=== PATIENT | female | born 1975 | race Caucasian/White ===

== ENCOUNTER 2024-11-22 11:04 | Emergency (ER) | payer OTHER, SELFPAY ==
--- NOTE | ~2024-11-22 | XR_ITS ---
EXAMINATION: XR chest 2V DATE: 11/22/2024 13:22 INDICATION: Cough. TECHNIQUE: Frontal and lateral views of the chest were obtained. COMPARISON: None. FINDINGS: There are airspace opacities in right middle lobe. No pleural effusion or pneumothorax. The heart size is normal. There are prominent pericardial fat pads. IMPRESSION: 1. Airspace opacities in right middle lobe, consistent with atelectasis versus pneumonia. Reviewed, dictated and finalized at location A. CONSERVATION SPECIALIST
--- OUTSIDE RECORDS SUMMARY | 2024-11-22 11:18 | XMS_ITS | Encounter Summary ---
Author Name [facility] Organization [facility] Address [address] [place] [id number] Selected Encounter This section includes the information on record at NH for the Encounter. Date/Time Encounter Type Encounter Description Reason Provider Source Aug 27, 2024 02:00 PM [facility] ASSMT/REASSESSME NT CAREGIVER SUPPORT PROGRAM ICD-10-CM Z63.6 Dependent relative needing care at home CHINA CASTRO [place] Encounter Template Text not used by [place] Assessments - Encounter Diagnoses This section includes the primary and secondary diagnoses documented for the Encounter. Date/Time Primary/Secondary Diagnosis Diagnosis Name Provider Source Aug 27, 2024 03:15 PM PRIMARY Dependent relative needing care at home CHINA CASTRO [facility] Encounter Notes: All associated encounter notes This section contains the clinical notes associated to the Encounter. Date/Time Encounter Note(s) Provider Source Aug 27, 2024 01:51 PM CAREGIVER CERTIFIC ATE: LOCAL TITLE: [facility] WELLNESS CONTACT CAREGIVER STANDARD TITLE: CAREGIVER CERTIFICATE DATE OF NOTE: AUG 27, 2024@13:51 ENTRY DATE: AUG 27, 2024@13:51:43 AUTHOR: CHINA CASTRO EXP COSIGNER: URGENCY: STATUS: COMPLETED This Family Caregiver is enrolled in the [facility] Program of Comprehensive Assistance for Family Caregivers (PCAFC). While enrolled in the PCAFC, wellness contacts are required and must review the Veterans well- being, adequacy of personal care services being provided by the Family Caregiver(s), and the well-being of the Family Caregiver(s). This wellness contact will occur at a minimum of once every 120 days, and at least one visit must occur in the eligible Veterans home on an annual basis. Date of Visit: AUG 27, 2024 Length of Visit: 20 minutes Full Name (last, first): TENA TAVAREZ ADDISON Age: 48 Full SSN: [id number] Date of : Sep Diagnosis: Z63.6- Dependent Relative Needing Care at Home Method of contact: __ Telehealth / [facility] Video Connect Caregiver contact details: Best contact number for backup/emergency communication with caregiver (required): Phone number: Caregiver location during visit: __ Home address: [address], [place] [address] Caregiver confirms location is private and safe for visit. Yes Visit conducted by clinical video telehealth: Yes Caregiver verbal consent obtained. Yes Location/emergency number confirmed. Yes Virtual Conference Room is locked. Yes Individuals providing input include: (include all that apply) __Primary Family Caregiver CAREGIVER INFORMATION The caregiver is a: Primary Family Caregiver Caregiver is providing care to: Name: Addison Castellanos Does the caregiver live with the ? Yes Have there been any changes to the caregivers address: no [address], [place] [address] telephone number: e-mail address: Is caregivers contact information in electronic health record and the Caregiver Support Program IT system current? Yes CAREGIVER ASSESSMENT How has your physical/mental/emotional health been lately? Good, the program is very supportive, outreach from [facility] on consistent basis, when I requested Respite it was addressed quickly. 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 It provides me some socialization and have met friends in the area (moved to [facility] from [place] to provide care to ). Caregiver shares she sleeps good and is able to attend her medical appointments. Have there been any changes (falls, ER visits, hospitalizations)? CG denies any falls, visits to E.D. or admissions to the hospital. What current challenges or stressors do you have, if any? Trying to determine what is his personality vs dementia... cognitive impairments vs personality. Caregiver further explained that has been more of an introvert and laidback all of his life so he she is not sure if his withdrawal and inactivity is related to his dementia or just his normal personality. How are you coping with these issues? (discuss coping skills and support systems as appropriate, consider referral to mental health) Caregiver shares she has locally and friends in [place] that are supportive. Additionally her daughter is local as she is attending college at [employer]. Do you feel comfortable and safe in your home environment? Yes What additional supports do you need to care for the , if any? (discuss respite services as appropriate) I don't believe so and I know who to reach out to if I need something. How can the Caregiver Support Program support you? What goals/needs can we assist you with? I'm good, you guys have made it easy peasy. SUMMARY OF VISIT/ACTION TAKEN Caregiver actively participated in the Wellness Contact conducted via telehealth. She was friendly, A&Ox4, able to stay on topic and used appropriate language skills during the conversation. Caregiver denies any additional needs at this time and reports feeling safe in her home. Confirmed with Caregiver that Respite (10hrs/week) was ongoing and not just for her recent trip to [place]. She reports moving from [place], still having her home in [place], to help her father/[place] with his care. A friend is renting her home for the next couple years. Caregiver has developed friends locally and is still on contact with her friends in [place]. She reports enjoying her part-time work as it has allowed her develop friends and engage in some social activity. Caregiver denies any additional needs at this time. /joao/ LEAH Downey, SENIOR SYSTEM OPERATOR Technical Support Technician, Caregiver Support Program Signed: 08/27/2024 15:15 [facility] CASTRO [facility]
--- OUTSIDE RECORDS SUMMARY | 2024-11-22 11:18 | XMS_ITS | Referral Summary ---
Author Organization [address] lt Address [address] [place] [address] Care Team Providers Care Senior Warehouse Clerk Name Role Phone Farida Min NP Primary Care Provider [phone] Allergies Active Allergy Reactions Criticality Noted Date Comments Propofol Flushing (skin),Hives,Itching,Palpitations,Rash ,Shortness of breath,Wheezing High 10/15/1991 Medications loratadine (Claritin) 10 mg tablet Active montelukast (SINGULAIR) 10 mg tabletIndicatio ns:Maintenance Therapy for Asthma Take 1 tablet (10 mg total) by mouth nightly 90 tablet 3 4 05/31/20 25 Active albuterol HFA (PROVENTIL HFA,VENTOLIN HFA,PROAIR HFA) 90 mcg/actuation inhalerIndicati ons:Acute Asthma Attack Inhale 2 puffs every 4 (four) hours as needed for wheezing 1 each 3 4 Active spironolactone (ALDACTONE) 25 mg tabletIndicatio ns:Hypertension , essential TAKE 2 TABLETS BY MOUTH JACK WINDER BEFORE BREAKFAST AND 1 TABLET WITH EVENING MEAL. 270 tablet 1 5 Active Active Problems Problem Noted Date Diagnosed Date Seasonal allergies 06/08/2024 Assessment & Plan (06/08/2024 3:28 PM CDT): - chronic, recently worsening since moving to the area - currently on loratadine - add Singulair 10 mg nightly - may use OTC Flonase &/or azelastine p.r.n. Hypertension, essential 06/08/2024 Assessment & Plan (06/08/2024 3:28 PM CDT): - chronic, stable at goal of < 140/90 - continue spironolactone 25 mg daily in the a.m. Class 2 obesity without seri ous comorbidity with body mass index (BMI) of 37.0 to 37.9 in adult 06/08/2024 Assessment & Plan (06/08/2024 3:29 PM CDT): - avoid/limit processed, fried/fast foods and simple/refined carbohydrates. Aim to eat plenty of vegetables, whole grains, legumes, lean protein, low-fat dairy, fruit, and include some healthy fats such as olive oil, nuts, avocados, and baked fatty fish such as salmon. - consider reducing carbohydrates to less than 150 g daily - aim for at least 30 minutes of moderate to intense aerobic activity most days of the week, strength training at least 2-3 times weekly Immunizations Name Administration Dates Next Due Influenza, Quadrivalent, [place]serr[place] l Culture-based MDCK, Preservative Free, Antibiotic Free, Intramuscular 08/21/2023 Influenza, Unspecified 08/21/2023 PPD TEST 08/27/2023 Social History Tobacco Use Types Packs/Day Years Used Date Smoking Tobacco: Every Day Vaping Smokeless Tobacco: Never Tobacco Cessation:Ready to Q uit: No; Counseling Given: Not Answered AUDIT-C Answer Date Recorded Q1: How often do you have a drink containing alc ohol? Monthly or less 06/05/2024 Q2: How many drinks containi ng alcohol do you have on a typical day when you are drinking? 3 or 4 06/05/2024 Q3: How often do you have si x or more drinks on one occasion? Less than monthly 06/05/2024 PHQ-2 Answer Date Recorded PHQ-2 Total Score (If total score is 3 or more points, staff should administer the PHQ-9) 0 06/05/2024 Exercise Vital Sign Answer Date Recorde d On average, how many days pe r week do you engage in moderate to strenuous exercise (like a brisk walk)? 7 days 06/05/2024 On average, how many minutes do you engage in exercise at this level? 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 MACHINE OPERATOR Gender Identity Female 08/26/2023 10:02 AM BEATING MACHINE OPERATOR Sexual Orientation Straight 08/26/2023 10 :02 AM BEATING MACHINE OPERATOR Last Filed Vital Signs Vital Sign Reading Time Taken Comments Blood Pressure 126/68 06/05/2024 1:20 PM CDT Pulse 80 06/05/2024 1:20 PM CDT Temperature 36.6 C (97.8 F) 06/05/2024 1:20 PM CDT Respiratory Rate - - Oxygen Saturation 99% 06/05/2024 1:20 PM CDT Inhaled Oxygen Concentration - - Weight 103 kg (227 lb 1.6 oz) 06/05/2024 1:20 PM CDT Height 162.6 cm (5' 4 ) 07/14/2024 1:33 PM CDT Body Mass Index 37.79 06/05/2024 1:20 PM CDT Plan of Treatment Not on file Procedures Procedure Name Priority Date/Time Associated Diagnosis Comments SCREENING MAMMOGRAM BILATERAL W JOSE Schedule Routine, Read Routine (OP Routine) 07/14/2024 1:40 PM CDT Breast cancer screening by mammogram HEPATITIS C ANTIBODY Routine 07/12/2024 9:14 AM CDT Encounter for hepatitis C screening test for low risk patient from Last 3 Months or Most Recently Relevant to Health Maintenance Results * Screening Mammogram Bilateral W Jose (07/14/2024 1:40 PM CDT) Anatomical Region Laterality Modality Breast Bilateral Mammography 07/17/2024 4:09 PM CDT Impressions 07/17/2024 4:09 PM CDT No evidence of malignancy in either breast. FINAL ASSESSMENT: BI-RADS Category 1: Negative. RECOMMENDATION: Recommend return for annual screening mammogram in 12 months. Electronically signed by: Deidra Tilley M.D. Narrative 07/17/2024 4:09 PM CDT EXAMINATION: BILATERAL SCREENING MAMMOGRAM COMPARISON: None TECHNIQUE: Full-field 2D and digital breast tomosynthesis (DBT) images were obtained. CAD was utilized. BREAST PARENCHYMAL COMPOSITION: The breasts are heterogenously dense, which may obscure small masses. FINDINGS: There is no suspicious mass, calcification, or distortion in either breast. Farida Min NP IMG MAMMO PROCEDURES Final R esult * Hepatitis C antibody Blood (07/12/2024 9:14 AM CDT) Hep C Ab Nonreactive Nonreactive Comment: Interpretive Data Nonreactive: Antibodies to HCV not detected. Does NOT exclude the possibility of recent exposure to HCV. Equivocal: Equivocal for HCV antibodies. Supplemental molecular testing will be automatically performed to determine infection status in accordance with current CDC screening recommendations. Reactive: Positive for HCV antibodies. This may represent current or past HCV infection. Supplemental molecular testing will be automatically performed to determine current infection status in accordance with current CDC screening recommendations. Interpretive data was last revised on 2019. Testing performed by: [facility], [address] [place] [address], [facility] Blood 07/12/2024 9:14 AM CDT 07/12/2024 4:07 PM CDT Farida Min NP LAB MICROBIOLOGY - GENERAL O RDERABLES Final Result Performing Organization Address City/State/[facility] Co de Phone Number [facility] [place] [facility] Department [place] [address] from Last 3 Months or Most Recently Relevant to Health Maintenance Insurance [employer] [facility] HMO Care Teams Senior Warehouse Clerk Relationship Specialty Start Date End Date Farida Min NP [address] [phone] PCP - General Infectious Diseases 06/04/24
--- OUTSIDE RECORDS SUMMARY | 2024-11-22 11:18 | XMS_ITS | Clinical Summary ---
Author Organization [address] Address [address] [place] [address] Care Team Providers Care Dean Of Student Services Name Role Phone Farida Min NP Primary Care Provider [phone] Allergies Active Allergy Reactions Criticality Noted Date [...] , essential TAKE 2 TABLETS BY MOUTH DEPUTY MANAGER BEFORE BREAKFAST AND 1 TABLET WITH EVENING [...] 08/21/2023 Influenza, Unspecified 08/21/2023 PPD TEST 08/27/2023 Surgical History Surgery Date Site/Laterality Comments SECTION 10/14/2004 OVARIAN CYST REMOVAL 1991 Medical History Medical History Date Comments Asthma Cancer (CMS/HCC) (HCC) BCC skin cancer on nose Hypertension eclampsia when giving Menstrual problem Smoking Family History Medical History Relation Name Comments Vision loss Daughter Kim Carmichael Alzheimer's disease Father Addison Castellanos Cancer Father Addison Castellanos Hyperlipidemia Father Addison Castellanos Cancer Mother Jes Castellanos Diabetes Mother Jes Castellanos Hyperlipidemia Mother Jes Castellanos Hypertension Mother Jes Castellanos Kidney disease Mother Jes Castellanos Miscarriages / Stillbirths Mother Jes Castellanos Obesity Mother Jes Castellanos Breast cancer Mother's Sister great aunt Ovarian cancer Neg Hx Thyroid cancer Neg Hx Relation Name Status Comments Daughter Kim Carmichael Father Addison Castellanos Mother Jes Castellanos Mother's Sister great aunt Social History Tobacco Use Types Packs/Day Years [...] on file 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 Gender Identity Female 08/26/2023 10:02 AM YARD CLERK Sexual Orientation Straight 08/26/2023 10 :02 AM YARD CLERK Obstetrics History Para Term AB IAB SAB Ectopic Multiple Livin g Live Births 4 1 1 Date Outcome GA Total Labor Labor/2nd/3rd Weight Sex Type Anes PTL Karla A1 A5 Name Clin Term Last Filed Vital Signs Vital Sign Reading [...] 06/05/2024 1:20 PM CDT Plan of Treatment Health Maintenance Due Date Last Done Comments Cervical Cancer Screening 1976 Colon Cancer Screening-Colonoscopy 1976 Pneumococcal vaccine <65 (1 of 2 - PCV) 1982 Covid-19 Vaccine (4 - 2023-2 5 season) 2024 10/21/2021, 11/17/2020, 10/22/2020 Influenza Vaccine (#1) 2024 3, 08/21/2023, 08/14/2022, Additional history exists Depression Screening 06/05/2025 06/05/2024 Regular Well Visit/Exam 18-64 06/05/2025 06/05/2024 Breast Cancer Screening-Mammogram 07/14/2025 024 DTaP/Tdap/Td Vaccine (2 - Td or Tdap) 02/22/2031 02/22/2021 Hepatitis B Screening Completed 07/12/2024, 001 Hepatitis C Screening Completed 07/12/2024 Procedures Procedure Name Priority Date/Time Associated Diagnosis [...] mass, calcification, or distortion in either breast. us Farida Min NP IMG MAMMO PROCEDURES Final [...] last revised on 2019. Testing performed by: [facility], [address] [place] [address]., [id number] Blood 07/12/2024 9:14 AM CDT 07/12/2024 4:07 PM CDT us Farida Min NP LAB MICROBIOLOGY - GENERAL O RDERABLES Final Result CHARLY CHAUDHARI ALLENDALE) [address] [facility] Department [place] [address] from Last 3 Months or Most Recently Relevant to Health Maintenance Insurance [employer] [facility] HMO Care Teams Dean Of Student Services Relationship Specialty Start Date End Date Farida Min NP [address] [address] PCP - General Infectious Diseases 06/04/24
--- OUTSIDE RECORDS SUMMARY | 2024-11-22 11:18 | XMS_ITS | Continuity of Care Document ---
Author Name [facility] Organization [facility] Care Team Providers Care Disk Recordist Name Role Phone [facility] Unavailable Unavailable Problems Combined list of problems from Department of [facility] and [facility] facilities. It does not include entries that were removed or entered in error. Problem Status Onset Date Problem Type Date of Resolution Comments Source Diagnosis: ICD-10-CM Z63.6 Dependent relative needing care at home Active Diagnosis [facility] Diagnosis: ICD-10-CM Z65.9 Problem related to unspecified psychosocial circumstances Active Diagnosis [facility] Encounters Combined list of: 1) Encounters from Department of [facility] Affairs facilities going backup to the last 18 months, not all [place] inpatient encounters are included; 2) Encounters from the Department [facility] facilities going backup to 280 months. Location Location Details Encounter Type Encounter Number Reason For Visit Attending Provider ADM Date DC Date Status Disposition Source [facility] PT EDUCATION NOC INDIVID [id number] Diagnos is: ICD-10- CM Z65.9 Problem related to unspeci fied psychos ocial circums tances MARIE DC L 03/31 [facility] PROGRAM INTAKE ASSESSMENT [id number] Diagnos is: ICD-10- CM Z63.6 Depende nt relativ e needing care at home Will YATES 05/08 [facility] Outpatient Encounter [id number] MARIE DC L 05/16 [facility] Outpatient Encounter [id number] 08/04 [facility] SESS[facility] [id number] Diagnos is: ICD-10- CM Z63.6 Depende nt relativ e needing care at home SUDHEER CASTRO 08/27 [facility] TEVIN Antonio
--- OUTSIDE RECORDS SUMMARY | 2024-11-22 11:20 | XMS_ITS | Continuity of Care Document ---
Author Name [facility] Organization [facility] Care Team Providers Care Plant Health Manager Name Role Phone [facility] Unavailable Unavailable Problems Combined list of problems from Department of [facility] and [facility] facilities. It does not include entries that were removed or entered in error. Problem Status Onset Date Problem Type Date of Resolution Comments Source Diagnosis: ICD-10-CM Z63.6 Dependent relative needing care at home Active Diagnosis [facility] Diagnosis: ICD-10-CM Z65.9 Problem related to unspecified psychosocial circumstances Active Diagnosis [facility] Encounters Combined list of: 1) Encounters from Department of [facility] Affairs facilities going backup to the last 18 months, not all [place] inpatient encounters are included; 2) Encounters from the Department [facility] facilities going backup to 280 months. Location Location Details Encounter Type Encounter Number Reason For Visit Attending Provider ADM Date DC Date Status Disposition Source [facility] PT EDUCATION NOC INDIVID [id number] Diagnos is: ICD-10- CM Z65.9 Problem related to unspeci fied psychos ocial circums tances MARIE DC L 03/31 [facility] PROGRAM INTAKE ASSESSMENT [id number] Diagnos is: ICD-10- CM Z63.6 Depende nt relativ e needing care at home Will YATES 05/08 [facility] Outpatient Encounter [id number] MARIE DC L 05/16 [facility] Outpatient Encounter [id number] 08/04 [facility]AS SESS[facility] [id number] Diagnos is: ICD-10- CM Z63.6 Depende nt relativ e needing care at home SUDHEER CASTRO 08/27 [facility] TEVIN Antonio
[2024-11-22 11:27] VITALS: BP 138/51; PULSE 85; RESP 20; TEMP 37.6; O2SAT 99
--- NOTE | 2024-11-22 13:01 | ED.GENADULT ---
HPI - General Adult General Chief complaint: Upper Respiratory Infection Stated complaint: cough,sinus nando, headache, irritated throat Source: patient Mode of arrival: ambulatory Limitations: no limitations History of Present Illness HPI narrative: Patient presents for evaluation of sick symptoms. She indicates she had symptoms consistent with a common cold or flu started 8 days ago. Her symptoms improved and then she had recurrence of her symptoms approximately 5 days ago. Symptoms include sinus congestion, productive cough of yellow sputum, wheezing, and chest tightness. She has an underlying history of asthma. She has been taking ogqi-uev-hdifuhj allergy medicine, cough cold medication, Sudafed, and used her albuterol inhaler. 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 She has a history of pneumonia and this feels similar to the start of when she had it before. She does vape. Related Data Home Medications ?Medication ?Instructions ?Recorded ?Confirmed ?Last Taken ?Type albuterol sulfate 90 mcg/actuation inhalation 11/22/24 Unknown History aerosol inhaler loratadine .ROUTE 11/22/24 Unknown History montelukast 10 mg tablet mg 11/22/24 Unknown History spironolactone 25 mg tablet mg 11/22/24 Unknown History Allergies Allergy/AdvReac Type Severity Reaction Status Date / Time propofol (From Diprivan) Allergy Unknown Unknown Verified 11/22/24 11:34 Review of Systems Review of Systems: CONSTITUTIONAL: Denies fever, chills, or sweats. EYES: Denies visual changes, redness, or discharge. ENT: Reports sinus congestion postnasal drainage. CARDIOVASCULAR: Denies chest pain, palpitations, or edema. RESPIRATORY: Reports cough, chest tightness and wheezing GASTROINTESTINAL: Denies abdominal pain, nausea, vomiting, or diarrhea. GENITOURINARY: Denies dysuria or hematuria. SKIN: Denies rash or itching. MUSCULOSKELETAL: Denies back pain, joint pain, or myalgia. NEUROLOGIC: Denies headache, numbness, dizziness, or weakness. PSYCHIATRIC: Denies anxiety or depression. [facility] Past Medical History Medical History Asthma Surgical History Surgical History No pertinent past surgical history Family History Family History Mother Family history non-contributory Social History Social History Smoking status: Current every day smoker Tobacco type: e-cigarettes/vaping Substance use: never Additional occupation/education comments: Works at a daycare Gender identity (if verbalized by the patient): Female Exam Narrative: GENERAL: Well-appearing, well-nourished, and in no acute distress. HEAD: Normocephalic, atraumatic. EYES: PERRLA and EOMI. ENT: Nares clear, no rhinorrhea or epistaxis. Mucous membranes moist. Oropharynx without tonsillar hypertrophy exudate or other lesions. Bilateral TMs pearly cortez nonbulging NECK: Supple. No adenopathy or masses. No carotid bruits or JVD CHEST: Poor inspiratory effort. Lungs bilaterally diminished. Wheezing present bilaterally. HEART: Regular rate and rhythm. No murmur heard. Normal peripheral pulses. ABDOMEN: Soft, nontender, nondistended, normal active bowel sounds. EXTREMITIES: Normal range of motion. No edema. SKIN: Warm, dry, no rash. NEURO: No focal deficits. Alert and oriented x3. PSYCH: Normal mood and affect. Course Course Emergency Course: This is a 49-year-old female who presented for evaluation of respiratory symptoms. Chest x-ray consistent pneumonia. Will discharge with azithromycin, Augmentin, prednisone. Increase hydration. Whpo-olu-dgsadgb agents for symptom management. Follow up with primary provider go to the ER for worsening symptoms. Patient in agreement with plan care. Level of Care: Express Care Visit Vital Signs Vital signs: Vital Signs Temperature 37.6 C H 11/22/24 11:27 Pulse Rate 85 11/22/24 11:27 Respiratory Rate 20 11/22/24 11:27 Blood Pressure 138/51 L 11/22/24 11:27 Pulse Oximetry 99 11/22/24 11:27 Oxygen Delivery Room Air 11/22/24 11:27 Temperature 37.6 C H 11/22/24 11:27 Pulse Rate 85 11/22/24 11:27 Respiratory Rate 20 11/22/24 11:27 Blood Pressure 138/51 L 11/22/24 11:27 Pulse Oximetry 99 11/22/24 11:27 Oxygen Delivery Room Air 11/22/24 11:27 Medical Decision Making Vital Signs Vital Signs: Vital Signs Temperature 37.6 C H 11/22/24 11:27 Pulse Rate 85 11/22/24 11:27 Respiratory Rate 20 11/22/24 11:27 Blood Pressure 138/51 L 11/22/24 11:27 Pulse Oximetry 99 11/22/24 11:27 Oxygen Delivery Room Air 11/22/24 11:27 Temperature 37.6 C H 11/22/24 11:27 Pulse Rate 85 11/22/24 11:27 Respiratory Rate 20 11/22/24 11:27 Blood Pressure 138/51 L 11/22/24 11:27 Pulse Oximetry 99 11/22/24 11:27 Oxygen Delivery Room Air 11/22/24 11:27 Imaging Data Radiologist's impression: EXAMINATION: XR chest 2V DATE: 11/22/2024 13:22 INDICATION: Cough. TECHNIQUE: Frontal and lateral views of the chest were obtained. COMPARISON: None. FINDINGS: There are airspace opacities in right middle lobe. No pleural effusion or pneumothorax. The heart size is normal. There are prominent pericardial fat pads. IMPRESSION: 1. Airspace opacities in right middle lobe, consistent with atelectasis versus pneumonia. Discharge Plan Discharge Clinical Impression: Community acquired pneumonia Patient Disposition: Home, Self-Care Condition: Stable Instructions: Antibiotic Form, Pneumonia (ED) Patient Language: Jordanian Prescriptions: New amoxicillin-pot clavulanate 875-125 mg tablet 1 tablet PO Q12H Qty: 20 0RF azithromycin [Zithromax Z-Harpreet] 250 mg tablet See Rx Instructions .ROUTE .COMPLEX Qty: 6 0RF Rx Instructions: For 250 mg dose pack: take 500 mg today (day 1), then 250 mg for 4 days (days 2-5) prednisone 50 mg tablet 50 mg PO DAILY Qty: 5 0RF No Action spironolactone 25 mg tablet montelukast 10 mg tablet albuterol sulfate 90 mcg/actuation HFA aerosol inhaler INHALATION loratadine .ROUTE Follow-up/Referrals: Jade Marquis DO [Physician] - Time of Disposition: 13:37
== END 2024-11-22 13:43 | disposition home or self-care (01) ==
PROVIDERS: Emergency Provider Nurse Practitioner
DX: J18.9 Pneumonia, unspecified organism (principal); F17.290 Nicotine dependence, other tobacco product, uncomplicated; J45.909 Unspecified asthma, uncomplicated
CPT/HCPCS: 71046; 99213; G0463

== ENCOUNTER 2024-12-01 14:08 | Emergency (ER) | payer OTHER, SELFPAY ==
--- NOTE | ~2024-12-01 | XR_ITS ---
EXAMINATION: XR chest 2V DATE: 12/01/2024 14:53 INDICATION: Pneumonia. TECHNIQUE: Frontal and lateral views of the chest were obtained. COMPARISON: Chest 2 views 11/22/2024 FINDINGS: There is no pneumonia, pleural effusion, or pneumothorax. The heart size is normal. There a re prominent pericardial fat pads. IMPRESSION: 1. No acute cardiopulmonary disease. Reviewed, dictated and finalized at location A. Y MEDIA OPERATOR
[2024-12-01 14:16] VITALS: BP 132/74; PULSE 86; RESP 20; TEMP 36.9; O2SAT 100
--- NOTE | 2024-12-01 15:12 | ED_ITS ---
HPI - URI/Sore Throat General Chief Complaint: Upper Respiratory Infection Stated Complaint: Shortness of Breath/Nausea Time Seen by Provider: 12/01/24 14:30 Source: patient, RN notes reviewed and old records reviewed Mode of arrival: ambulatory Limitations: no limitations History of Present Illness HPI Narrative: 49 year old female presents to [facility] care with complaints of still having some cough and some occasional nausea after being treated for pneumonia in the right middle lobe on the 22 of November. Patient reports no recent fevers, chills,or any body aches. Patient states that she is on the last day of antibiotics and states some feelings of lung heaviness, does have underlying history of asthma. Patient reports that she has also completed her steroids has had no acute shortness of breath with respirations even and nonlabored.,SAO2 100% on room air. Patient reports that she need repeat chest xray to make sure pneumonia has cleared. MD elicited complaint: cough and other (some nsusea) Pertinent past history: asthma Onset (ago): day(s) (initial symptoms on November 22) Severity: mild Able to tolerate fluids by mouth: Yes Treatments prior to arrival: antibiotics and other (Mucinex) Related Data Home Medications ?Medication ?Instructions ?Recorded ?Confirmed ?Last Taken ?Type albuterol sulfate 90 mcg/actuation inhalation 11/22/24 Unknown History aerosol inhaler loratadine .ROUTE 11/22/24 Unknown History montelukast 10 mg tablet mg 11/22/24 Unknown History spironolactone 25 mg tablet mg 11/22/24 Unknown History Allergies Allergy/AdvReac Type Severity Reaction Status Date / Time propofol (From Diprivan) Allergy Unknown Unknown Verified 11/22/24 11:34 Review of Systems Review of Systems: CONSTITUTIONAL: Denies malaise, chills, sweats, or fever. EYES: Denies visual changes, redness, or discharge. ENT: Reports rhinorrhea, congestion, no sinus pain,no otalgia and no sore throat. CARDIOVASCULAR: Denies chest pain, palpitations, or edema. RESPIRATORY: Reports cough.? Denies any acute dyspnea. GASTROINTESTINAL: Denies abdominal pain, reports some nausea, no vomiting, no diarrhea SKIN: Denies rash or itching. MUSCULOSKELETAL: Denies myalgia. NEUROLOGIC: Denies headache. 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 There is no relevant family history pertinent to the presenting complaint Exam Narrative: GENERAL: Well-appearing, well-nourished, and in no acute distress. HEAD: Normocephalic EYES: PERRLA, conjunctivae clear ENT: Nares clear, turbinates edematous and erythematous, clear discharge. Mucous membranes moist. TM pearly cortez with dull light reflex bilaterally; no tragal tenderness. Oropharynx erythematous without lesions. Tonsils not enlarged and without exudate, no drooling, no hoarseness, no trismus, uvula midline.post nasal drainage NECK: Supple. No lymphadenopathy CHEST: Clear to auscultation, breath sounds equal. No wheezing, rhonchi, rales, or stridor. No respiratory distress, speaks in full sentences.dry cough noted SAO2 100% on room air HEART: Regular rate and rhythm. No murmur heard. SKIN: Warm, dry, no rash. NEURO: Alert and oriented x3. PSYCH: Normal mood and affect Course Course Emergency Course: Patient is aware of diagnosis, understands and agrees to treatment plan.? Anticipatory guidance given.? Patient agrees to follow-up as directed and is aware of reasons to seek care at the emergency department. Portions of this record may have been created with voice recognition software Level of Care: Express Care Visit Vital Signs Vital signs: Vital Signs Temperature 36.9 C 12/01/24 14:16 Pulse Rate 86 12/01/24 14:16 Respiratory Rate 20 12/01/24 14:16 Blood Pressure 132/74 02/17/25 14:16 Pulse Oximetry 100 12/01/24 14:16 Oxygen Delivery Room Air 12/01/24 14:16 Temperature 36.9 C 12/01/24 14:16 Pulse Rate 86 12/01/24 14:16 Respiratory Rate 20 12/01/24 14:16 Blood Pressure 132/74 12/01/24 14:16 Pulse Oximetry 100 12/01/24 14:16 Oxygen Delivery Room Air 12/01/24 14:16 Reviewed MDM - URI/Sore Throat MDM Narrative Medical decision making narrative: Differential diagnosis considered: Smith virus, strep pharyngitis, allergic rhinitis, upper respiratory tract infection, sinusitis, rhinosinusitis, nasopharyngitis. viral pharyngitis, otitis media, otitis externa, pneumonia, bronchitis, viral cough syndrome, viral syndrome, and influenza.? Exam findings show no acute concerns or changes; patient is non-toxic appearing and is in no d istress.? Patient is appropriate for outpatient treatment and follow-up. Differential Diagnosis Differential diagnosis: Likely upper respiratory infection and other (cough, recent pneumonia ) Medical Records Attestation: I reviewed the patient's medical records. Lab Data Attestation: I reviewed the patient's lab results. Imaging Data Attestation: I personally reviewed and interpreted this imaging study as follows: My impression: no acute cardiopulmonary disease Radiologist's impression: XRay Report Signed Patient: Maritza Carmichael : 1975 MR#: [id number] Age: 49 Acct:[id number] Loc: [facility] ADM Date: 12/01/24Attending Dr: Ordering Physician: Taylor Way APRN Date of Service: 12/01/24 Procedure(s): XR chest 2V Accession Number(s): [id number] cc: MASONRY INSPECTOR PHYSICIAN; Taylor Way APRN~ EXAMINATION: XR chest 2V DATE: 12/01/2024 14:53 INDICATION: Pneumonia. TECHNIQUE: Frontal and lateral views of the chest were obtained. COMPARISON: Chest 2 views 11/22/2024 FINDINGS: There is no pneumonia, pleural effusion, or pneumothorax. The heart size is normal. There are prominent pericardial fat pads. IMPRESSION: 1. No acute cardiopulmonary disease. Reviewed, dictated and finalized at location A. UIT FACTORY WORKER Please be advised this is a medical document. It is intended for ggok-au-mpny communication. It is written in medical language and may contain unfamiliar abbreviations or verbiage. Medical documents are intended to carry relevant information, facts as evident, and the clinical opinion of the practitioner at the time of the encounter. This report may have been done utilizing a voice recognition system. Attempts have been made to correct errors. However, there may be uncorrected grammatical, spelling, and recognition errors present. The file time of this note does not necessarily represent the time of service. Dictated By: Venkat Vazquez MD 12/01/24 1458 Signed By: <Electronically signed by Venkat Vazquez MD in OV> Critical Care Time Critical Care Time Critical Care Time: No Discharge Plan Discharge Clinical Impression: URI (upper respiratory infection) Qualifiers: URI type: unspecified URI Qualified Code(s): J06.9 - Acute upper respiratory infection, unspecified Patient Disposition: Home, Self-Care Condition: Stable Instructions: Upper Respiratory Infection (ED) Additional Instructions: Increase fluids especially juices and water Dzuj-paj-xduadsq cough and cold medicine of your choice for your symptoms Mucinex daily to thin secretions drink plenty of fluids taking this medication Continue your inhaler/nebulizer as directed Zyrtec or Claritin or Julianne daily heat to the face 20-30 minutes 4-6 times a day for pain Salt water gargles, throat lozenges or throat sprays as desired Tylenol or ibuprofen for any fever pain If your symptoms persist, change or worsen significantly before you can contact your personal physician then please, without delay, go to the emergency department for further evaluation. Follow-up with PCP in 7-10 days or sooner if needed Follow up with PCP soon in regards to your blood pressure which is elevated above threshold for referral. Blood pressure above 120/80 may indicate pre- hypertension. 132/74 Quit vaping Patient Language: Anguillan Prescriptions: No Action spironolactone 25 mg tablet montelukast 10 mg tablet albuterol sulfate 90 mcg/actuation HFA aerosol inhaler INHALATION loratadine .ROUTE amoxicillin-pot clavulanate 875-125 mg tablet 1 tablet PO Q12H Qty: 20 0RF azithromycin [Zithromax Z-Harpreet] 250 mg tablet See Rx Instructions .ROUTE .COMPLEX Qty: 6 0RF Rx Instructions: For 250 mg dose pack: take 500 mg today (day 1), then 250 mg for 4 days (days 2-5) prednisone 50 mg tablet 50 mg PO DAILY Qty: 5 0RF Follow-up/Referrals: PHYSICIAN,MASONRY INSPECTOR [Primary Care Provider] - Time of Disposition: 15:21 Quality [place] Coma Scale Eyes: Open Verbal: Oriented and Alert Motor: Follows Commands Deonte Coma Total Score: 15
--- OUTSIDE RECORDS SUMMARY | 2024-12-01 16:45 | XMS_ITS | Continuity of Care Document ---
Author Name [facility] Organization [facility] Care Team Providers Care Time Study Technologist Name Role Phone [facility] Unavailable Unavailable Problems Combined list of problems from Department of [facility] and [facility] facilities. It does not include entries that were removed or entered in error. Problem Status Onset Date Problem Type Date of Resolution Comments Source Diagnosis: ICD-10-CM Z63.6 Dependent relative needing care at home Active Diagnosis [facility] Diagnosis: ICD-10-CM Z65.9 Problem related to unspecified psychosocial circumstances Active Diagnosis [facility] Encounters Combined list of: 1) Encounters from Department of [facility] Affairs facilities going backup to the last 18 months, not all [place] inpatient encounters are included; 2) Encounters from the Department [facility] facilities going backup to 280 months. Location Location Details Encounter Type Encounter Number Reason For Visit Attending Provider ADM Date DC Date Status Disposition Source [facility] PT EDUCATION NOC INDIVID [id number] Diagnos is: ICD-10- CM Z65.9 Problem related to unspeci fied psychos ocial circums tances MARIE DC L 03/31 [facility] PROGRAM INTAKE ASSESSMENT [id number] Diagnos is: ICD-10- CM Z63.6 Depende nt relativ e needing care at home Will YATES 05/08 [facility] Outpatient Encounter [id number] MARIE DC L 05/16 [facility] Outpatient Encounter [id number] 08/04 [facility] [id number] Diagnos is: ICD-10- CM Z63.6 Depende nt relativ e needing care at home SUDHEER CASTRO 08/27 [facility] TEVIN Antonio
--- OUTSIDE RECORDS SUMMARY | 2024-12-01 16:45 | XMS_ITS | Clinical Summary ---
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 Testing performed by: [facility], [address] [place] [address]., [id number] Blood 07/12/2024 9:14 AM CDT 07/12/2024 4:07 PM CDT us Farida Min NP LAB MICROBIOLOGY - GENERAL O RDERABLES Final Result CHARLY CHAUDHARI HATILLO) 1 [facility] Department [place] [address] from Last 3 Months or Most Recently Relevant to Health Maintenance Insurance [employer] [facility] HMO Care Teams Internet Marketing Analyst Relationship Specialty Start Date End Date Farida Min NP [address] [address] PCP - General Infectious Diseases 06/04/24
--- OUTSIDE RECORDS SUMMARY | 2024-12-01 16:45 | XMS_ITS | Referral Summary ---
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 Testing performed by: [facility], [address] [place] [address], [facility] Blood 07/12/2024 9:14 AM CDT 07/12/2024 4:07 PM CDT Farida Min NP LAB MICROBIOLOGY - GENERAL O RDERABLES Final Result Performing Organization Address City/State/[facility] Co de Phone Number [facility] [place] [facility] Department [place] [address] from Last 3 Months or Most Recently Relevant to Health Maintenance Insurance [employer] [facility] HMO Care Teams Sql Analyst Relationship Specialty Start Date End Date Farida Min NP [address] [id number] PCP - General Infectious Diseases 06/04/24
--- OUTSIDE RECORDS SUMMARY | 2024-12-01 16:49 | XMS_ITS | Continuity of Care Document ---
Author Name [facility] Organization [facility] Care Team Providers Care Director Of Sales And Marketing Name Role Phone [facility] Unavailable Unavailable Problems Combined list of problems from Department of [facility] and [facility] facilities. It does not include entries that were removed or entered in error. Problem Status Onset Date Problem Type Date of Resolution Comments Source Diagnosis: ICD-10-CM Z63.6 Dependent relative needing care at home Active Diagnosis [facility] Diagnosis: ICD-10-CM Z65.9 Problem related to unspecified psychosocial circumstances Active Diagnosis [facility] Encounters Combined list of: 1) Encounters from Department of [facility] Affairs facilities going backup to the last 18 months, not all [place] inpatient encounters are included; 2) Encounters from the Department [facility] facilities going backup to 280 months. Location Location Details Encounter Type Encounter Number Reason For Visit Attending Provider ADM Date DC Date Status Disposition Source [facility] PT EDUCATION NOC INDIVID [id number] Diagnos is: ICD-10- CM Z65.9 Problem related to unspeci fied psychos ocial circums tances MARIE DC L 03/31 [facility] PROGRAM INTAKE ASSESSMENT [id number] Diagnos is: ICD-10- CM Z63.6 Depende nt relativ e needing care at home Will YATES 05/08 [facility] Outpatient Encounter [id number] MARIE DC L 05/16 [facility] Outpatient Encounter [id number] 08/04 [facility] [id number] Diagnos is: ICD-10- CM Z63.6 Depende nt relativ e needing care at home SUDHEER CASTRO 08/27 [facility] TEVIN Antonio
== END 2024-12-01 15:25 | disposition home or self-care (01) ==
PROVIDERS: Emergency Provider Registered Nurse
DX: J06.9 Acute upper respiratory infection, unspecified (principal); F17.290 Nicotine dependence, other tobacco product, uncomplicated; J45.909 Unspecified asthma, uncomplicated
CPT/HCPCS: 71046; 99213; G0463